=== PATIENT | female | born 1955 | race Caucasian/White ===

== ENCOUNTER → 2016-11-28 | Day surgery (SDC) | payer OTHER ==
[~2016-11-28] MED LIST: ACETAMINOPHEN 1000 MG/100 ML VIAL IV ONE; ACETAMINOPHEN/HYDROcodone 325 MG/5 MG TAB ONE; BACITRACIN IM FOR SOLN 50,000 UNIT VIAL ONE; BUPIVACAINE/EPINEPHRINE 0.25% 50 ML VIAL ONE; GENTAMICIN SULFATE 80 MG/2 ML VIAL ONE; LACTATED RINGER'S 1000 ML INJ 1,000 ML ONE; LIDOCAINE 1%/EPINEPHrine 1:100,000 SOLN 20 ML VIAL ONE; MEPERIDINE HCL 25 MG/ML VIAL ONE; MIDAZOLAM HCL 2 MG/2 ML VIAL ONE; ONDANSETRON HCL 4 MG/2 ML VIAL IV PUSH ONE; PROPOFOL 100 MG/10 ML INJ IV ONE; SODIUM CHLORIDE 0.9% 20 ML VIAL ONE; ZOVI400T15 PO; ceFAZolin INJ 1,000 MG VIAL ONE
--- NOTE | 2016-11-28 09:45 | TN ---
cc: DAVIDSON CURRAN M.D. DATE OF SURGERY: 11/28/2016 PREOPERATIVE DIAGNOSIS Wishes to breast enlargement and correction of ptosis. POSTOPERATIVE DIAGNOSIS Wishes to breast enlargement and correction of ptosis. PROCEDURE Removal, replace of implants and circum-vertical mastopexy. SURGEON Davidson Curran MD ANESTHESIA LMA general. Total of 30 ccs of 1% lidocaine with epinephrin. ESTIMATED BLOOD LOSS Minimal. COMPLICATIONS None. IMPLANT DATA Right is a 535 ultra high profile [place], serial number [id number] and on the left [id number] also 535. PROCEDURE She was properly consented, marked, properly anesthetized. The skin was sterilized with Betadine solution, sterile draping was applied. Local anesthetic was applied. Through a previous vertical infra-areolar incision the pocket was encountered, the implant was removed. I proceeded and performed the usual capsulotomies where needed in order to accommodate the implant. Irrigation with triple antibiotic solution took place. Utilizing no-touch technique the implant was introduced. The wound was closed in multiple 2-0 Monocryl suture layers at the capsule, breast parenchyma and dermis. As the contralateral side was approached exactly in the same fashion, no evidence of pathology was found on either breast. The patient was sat up, the NAC was set approximately 18 and 1/2 cm from the sternal notch, 42 mm areolar diameter. A tailor tack technique was utilized in order to reassess the excess of loose skin. This was properly temporarily marked with surgical brandon. It was properly marked and the brandon were removed. The skin was de-epithelialized and the skin was formally closed utilizing 2-0 Monocryl suture in the vertical horizontal fashion and the NAC was set to 42 mm areolar diameter and again about 18 cm from the sternal notch utilizing a pin-wheel technique utilizing 2-0 PTFE suture reinforced with 2-0 Quill. Prineo Dermabond was utilized to secure the skin, tissue glue and absorbent dressings. A snug brassiere was applied thereafter. Good viability of tissue was noted at the end of the case. The patient was awakened, extubated in the operating room and transferred back to the postanesthesia care unit in stable condition. No complications were appreciated. The patient tolerated the procedure fairly well. MD GERDA Suggs/LEON /9:21 AM /9:31 AM
== END | disposition home or self-care (01) ==
LOC: ESDC 06:33
PROVIDERS: ATTEND Plastic Surgery
DX: Z41.1 Encounter for cosmetic surgery (principal)
CPT/HCPCS: 00402; 19316; 19325; 19328; C1789; J0131; J0690; J1580; J2175; J2250; J2405; J3010; J7120